=== PATIENT | female | born 1980 ===

== ENCOUNTER 2018-08-14 09:58 | Outpatient (CLI) | payer OTHER ==
--- NOTE | 2018-08-14 13:15 | MRI ---
MRI LUMBAR SPINE: INDICATIONS: Low back pain. Right lower extremity radiculopathy. TECHNIQUE: Multiplanar, multisequential images of the lumbar spine obtained with multiplanar reconstruction. FINDINGS: The lumbar vertebrae maintain normal height. There are degenerative disk and endplate changes at L5- S1. Slight posterior listhesis at L5-S1 is seen. There is a broad-based disk protrusion with central extrusion at L5-S1. This central extruded disk m easures up to 9 mm in AP dimension. It compresses the thecal sac centrally and to the right and disp laces the traversing right S1 nerve root. There is bilateral foraminal stenosis due to this broad-ba sed protrusion and facet hypertrophy, more pronounced on the right. There is facet arthrosis at this level. At L4-L5, mild disk bulge and mild facet arthrosis without significant central canal or foraminal noé nosis. At L3-L4, minimal disk bulge. Mild facet arthrosis. No significant central canal or foraminal steno sis. No significant abnormality at L2-L3 or at L1-L2. IMPRESSION: Degenerative disk and endplate changes are prominent at L5-S1. There is a broad-based disk protrusio n with central extrusion at this level, as described above. POS: [facility]
== END 2018-08-14 09:59 | disposition home or self-care (01) ==
LOC: BICMRI 09:58
PROVIDERS: ATTEND Family Medicine
DX: M51.17 Intervertebral disc disorders with radiculopathy, lumbosacral region (principal); M51.16 Intervertebral disc disorders with radiculopathy, lumbar region
CPT/HCPCS: 72148